=== PATIENT | male | born 1945 | race Caucasian/White ===

== ENCOUNTER 2018-11-18 22:21 | Inpatient (IN) | payer OTHER ==
[~2018-11-18] VITALS: Ht 172.7 cm; Wt 115.3 kg
--- NOTE | ~2018-11-18 | O ---
[facility] [place] [address] OPERATIVE REPORT Name: NESTOR RIVERA Room #: 360-P [facility] IN M.R.#: [id number] Admission: 11/19/18 ������������������ Attend Phys: Rocky Wray Discharge: ������������������ Date of : 41 Report #: [id number] THIS REPORT FOR: //name// CC: OLINDA physician/PCP Rocky Wray DATE OF SERVICE: 11/20/2018 PREOPERATIVE DIAGNOSIS: Left ankle Maisonneuve type injury with syndesmotic ligament disruption. POSTOPERATIVE DIAGNOSIS: Left ankle Maisonneuve type injury with syndesmotic ligament disruption. PROCEDURE: Left ankle percutaneous screw syndesmosis. SURGEON: Todd Kern M.D. MIRROR FINISHING MACHINE OPERATOR: Joann Delgado. ANESTHESIA: Local with MAC. ESTIMATED BLOOD LOSS: Minimal. DRAINS: None. TOURNIQUET TIME: 0. TOURNIQUETS: None. COMPLICATIONS: None. DESCRIPTION OF PROCEDURE: The patient brought to the operating room where he was placed under MAC anesthesia. His left lower extremity was then prepped and draped in a sterile manner. Utilizing fluoroscopy for guidance, a bone reduction tenaculum was then placed across the syndesmosis. Excellent reduction was achieved in this manner. Once this was achieved, two 4.5 mm cannulated screws were placed in a parallel position along the syndesmosis from the fibula to the tibia. Excellent fixation and alignment was achieved as verified under fluoroscopy. The wound was then irrigated copiously and closed with gurwinder for the skin. The wound was dressed with Xeroform, 4 x 4s, and a sterile soft compressive dressing with a short leg cast was placed. There were no [facility] [address] [place] [address] OPERATIVE REPORT Name: NESTOR RIVERA Room #: 360-P [facility] IN ..#: [id number] Admission: 11/19/18 ������������������ Attend Phys: Rocky Wray Discharge: ������������������ Date of : 41 Report #: [id number] complications from the procedure. The patient tolerated the procedure well and went to the recovery room without incident. ��������������������������������������������� ���������������������������������������� By: ��������������������������������������������� 1427 [id number] Todd Kern MD /nt
[2018-11-18 22:22] VITALS: BP 77/40
[2018-11-18 22:56] LABS: ABSOLUTE NEUTROPHILS 4.7 thou/uL (1.4-8.2); BASOPHILS 1.1 % (0.0-2.0); EOSINOPHILS 3.2 % (0.0-3.0); HEMATOCRIT 47.4 % (42.0-52.0); HEMOGLOBIN 15.7 gm/dL (14.0-18.0); LYMPHOCYTES 28.9 % (24.0-44.0); MCH 33.7 pg (26.0-34.0); MCHC 33.2 g/dL (28.0-37.0); MCV 101.6 fL (80.0-100.0); MONOCYTES 9.3 % (1.0-8.0); PLATELET COUNT 236 thou/uL (150-400); POLYS 57.5 % (36.0-66.0); RBC 4.67 mil/uL (4.50-6.00); RDW 16.4 % (10.5-14.5); WBC 8.1 thou/uL (4.0-11.0)
[2018-11-18 23:07] LABS: CALCIUM 9.3 mg/dL (8.5-10.1); CREATININE 1.9 mg/dL (0.7-1.3); POTASSIUM 3.7 mmol/L (3.5-5.1)
[2018-11-18 23:11] LABS: ALBUMIN 3.4 g/dL (3.4-5.0)
[2018-11-18 23:31] LABS: TOTAL BILIRUBIN 0.3 mg/dL (<0.1-1.0); TOTAL PROTEIN 7.6 g/dL (6.4-8.2)
[2018-11-19] VITALS (7 sets, daily range): BP systolic 93–160; BP diastolic 60–86
[2018-11-19 03:18] LABS: MAGNESIUM 2.2 mg/dL (1.8-2.4)
[2018-11-19 04:02] LABS: FOLIC ACID 26.5 ng/mL (8.6-58.9)
[2018-11-19 04:59] LABS: AMP/METHAMP Negative (Negative); BARBITURATES Negative (Negative); BENZODIAZEPINES Negative (Negative); COCAINE Negative (Negative); METHADONE Negative (Negative); OPIATES Negative (Negative); PCP Negative (Negative)
[2018-11-19 05:09] LABS: URINE BILIRUBIN NEGATIVE (Negative); URINE BLOOD 1+ (Negative); URINE CLARITY CLEAR; URINE COLOR YELLOW; URINE GLUCOSE-RANDOM* 3+ (Negative); URINE KETONES NEGATIVE (Negative); URINE LEUKOCYTES-REFLEX NEGATIVE (Negative); URINE NITRITE-REFLEX NEGATIVE (Negative); URINE PROTEIN (DIPSTICK) NEGATIVE (Negative); URINE SPECIFIC GRAVITY <= 1.005 (1.005-1.035); URINE UROBILINOGEN 0.2 E.U./dl (0.2-1.0)
--- NOTE | 2018-11-19 05:16 | NUR ---
Pt arrived from ER at about 0200 11/19/18. A/O x 4 with some forgetfulness. RA. Unsteady on feet, up with assist x 2. C/o intermittent left ankle pain with some pain relief from rest. CWIA score 1 consistently. VSS. V-paced rhythm. Pt stated he did take some home meds but couldn't remember the names of those meds nor prefered pharmacy. Unable to complete med reconciliation or prefered pharmacy info. Urine sample sent to lab. Bed alarm on. Fall precautions initiated and maintained. Pt instructed to call for assistance. Call light within reach. Will continue to monitor.
[2018-11-19 05:21] LABS: CASTS None Seen /LPF (None Seen); MUCUS None Seen strn/LPF (None Seen); SQUAMOUS None Seen /LPF (0-3); URINE RBC 0-2 Rare /HPF (0-2); URINE WBC-REFLEX 0-5 Rare /HPF (0-5)
[2018-11-19 05:22] LABS: BACTERIA-REFLEX None Seen /HPF (None Seen); CRYSTALS None Seen /LPF (None Seen)
[2018-11-19 06:50] LABS: HEMATOCRIT 45.2 % (42.0-52.0); HEMOGLOBIN 14.6 gm/dL (14.0-18.0); MCH 33.4 pg (26.0-34.0); MCHC 32.3 g/dL (28.0-37.0); MCV 103.5 fL (80.0-100.0); RBC 4.37 mil/uL (4.50-6.00); RDW 16.3 % (10.5-14.5); WBC 8.2 thou/uL (4.0-11.0)
--- NOTE | 2018-11-19 06:57 | NUR ---
At about 0630 this AM shortly upon awakening, Pt c/o left ankle pain level 5-7/10 upon movement in particular. Pain med given per order. Increased swelling noted at left ankle. Pt instructed not to get up and call for assistance. Will follow up with incoming day-shift RN. Fall precautions maintained. Call light within reach.
[2018-11-19 07:01] LABS: CALCIUM 8.3 mg/dL (8.5-10.1); CREATININE 1.6 mg/dL (0.7-1.3); POTASSIUM 3.7 mmol/L (3.5-5.1)
--- NOTE | 2018-11-19 10:36 | NUR ---
BLOOD SUGAR 32 THIS MORNING. ONE AMP OF D50 GIVEN. BLOOD SUGAR RECHECKED AND IS NOW 97.
--- NOTE | 2018-11-19 22:08 | EKG ---
[address] [address] ELECTROCARDIOGRAM REPORT Name: NESTOR RIVERA Room #: 360- ADM IN M.R.#: [id number] ������������������ Admission: 11/19/18 ������������������ Attend Phys: Moisés Grey MD Discharge: ������������������ Date of : 41 Report #: [id number] ����������������������������������������������������������������� [id number] THIS REPORT FOR: //name// [facility] ED Test Date: 2018-11-18 Test Time: 22:55:06 Pat Name: NESTOR RIVERA Department: Room: [facility] Gender: M Fusion Analyst: PRINCE : 1945 Requested By: Kody Bazzi Order Number: [id number] MD: Arya Epperson Measurements Intervals [place] Rate: 68 P: -44 [place]: 152 QRS: -77 QRSD: 200 T: 113 QT: 522 QTc: 556 Interpretive Statements Ventricular-paced complexes No further analysis attempted due to paced rhythm Baseline wander in lead(s) V5 No previous ECG available for comparison Electronically Signed On 11-19-2018 22:08:21 REGULATORY AFFAIRS SPECIALIST by Arya Epperson [email or web address] ��������������������������������������������� <ELECTRONICALLY SIGNED> ���������������������������������������� By: Arya Epperson MD ��������������������������������������������� 11/19/18 2208 [id number] Arya Epperson MD /EPI
[2018-11-20] VITALS (7 sets, daily range): BP systolic 136–197; BP diastolic 68–120
--- NOTE | 2018-11-20 05:52 | NUR ---
PT ADMITTED FROM ER VIA EMS. FOLLOWING POC WITH IVF AND IVPB ANTIBIOTICS. ALL THREE Q4 CIWA'S WERE SCORED 3'S. PT HAS BEEN NPO SINCE 2400 FOR SCHEDULED SURGERY TODAY. PT'S LEFT FOOT HAS BEEN ELEVATED ALL SHIFT WITH A PILLOW. PT'S CONCERN WAS FOR PAIN CONTROL AND WHAT TIME HIS SURGERY IS SCHEDULED FOR. VSS, AND HOURLY ROUNDING. PT USES CALL LIGHT ACCORDINGLY AND USES URINAL FOR MICTRATION.
[2018-11-20] MEDS ORDERED: VITAMIN D5000 UNIT PO (09:27)
[2018-11-20] MEDS ORDERED: NITROSTAT0.4 MG SUBLING (09:28)
[2018-11-20] MEDS ORDERED: FOLIC ACID1 MG PO (09:28)
[2018-11-20] MEDS ORDERED: KLOR-CON 1010 MEQ PO (09:28)
[2018-11-20] MEDS ORDERED: ATIVAN1 MG PO (09:28)
[2018-11-20] MEDS ORDERED: VITAMIN B-12500 MCG PO (09:28)
[2018-11-20] MEDS ORDERED: COREG25 MG PO (09:29)
[2018-11-20] MEDS ORDERED: AMARYL2 MG PO (09:29)
[2018-11-20] MEDS ORDERED: LASIX 40 MG TAB40 M2 PO (09:29)
[2018-11-20] MEDS ORDERED: LIPITOR80 MG PO (09:29)
[2018-11-20] MEDS ORDERED: LISINOPRIL5 MG PO (09:29)
[2018-11-20] MEDS ORDERED: EFFEXOR XR75 MG PO (09:30)
[2018-11-20] MEDS ORDERED: IMDUR 30 MG TAB30 M1 PO (09:30)
[2018-11-20] MEDS ORDERED: MYSOLINE50 MG PO (09:30)
[2018-11-20] MEDS ORDERED: PLAVIX 75 MG TA75 MG PO (09:31)
[2018-11-20] MEDS ORDERED: JARDIANCE10 MG PO (09:31)
[2018-11-20] MEDS ORDERED: XARELTO10 MG PO (09:31)
[2018-11-20] MEDS ORDERED: TRIAMCINOLONE A80 G2 TOP (09:32)
--- NOTE | 2018-11-20 14:17 | NUR ---
ASSESSMENT-PT LIVES AT HOME WITH HIS CAT CLIFTON. HE HAS A SON, DTR AND EX- IN THE AREA. PT SAYS HE SLEEPS IN A RECLINER. PRIOR TO ADMISSION PT WAS WALKING ON HIS OWN AND DOING HIS OWN ADLS. HE SAYS HE DOES ALL OF HIS OWN COOKING, CLEANING AND LAUNDRY. PT HAS GRAB BARS AND A SHOWER CHAIR IN THE BATHROOM. PT HAS NOT HAD ANY HH SERVICES. PT GOING TO SURGERY TODAY AND UNDERSTANDS HE WILL NEED TO GO TO REHAB AFTER SURGERY. PT IS CONCERNED ABOUT HIS CAT AND WANTS TO GO SOMEWHERE WHERE HE CAN TAKE THE CAT. ALERTED HIM THAT WE WOULD NEED TO CHECK OPTIONS WITHIN HIS INS NETWORK. PT VOICED UNDERSTANDING. FOLLOWING TO ASSIST WITH REHAB PLACEMENT ONCE MEDICALLY STABLE.
--- NOTE | 2018-11-20 17:07 | NUR ---
ASSUMED CARE AT SHIFT CHANGE. PT A/O X 4, ANXIOUS/AGGITATED THIS AM, CIWA OF 12. GIVEN PRN IV ATIVAN FOR WITHDRAW SYMPTOMS, IMPROVED. PT RESTING CALMLY THIS AFTERNOON, NAD NOTED. HAD SURGERY AT [address] ANKLE WITH DR DALTON. PSYCH CONSULT SAW PT TODAY WELL. ASSESSMENTS PER CHART, LABS NOTED. HOME MEDS RECONCILED PER PT PCP. PT RESTING CALMLY WITH NAD NOTED AT THIS TIME. WILL CONT TO MONITOR AND INTERVENE PRN.
--- NOTE | 2018-11-20 19:25 | NUR ---
PT HAD EPISODE OF PROJECTION PRINTER ALARMING V-TACH. PT A/O, DENIES SOB, CP. SENIOR NUCLEAR MEDICINE TECHNOLOGIST STATES PT HAS HAD INTERMITTENT EPISODES OF "RUN PVC'S/VTACH" FOR APPROX 30-45MIN. DR BUSTAMANTE NOTIFIED AT 1850. ORDERS RECEIVED FOR EKG AND IV LOPRESSOR. PT RESTING CALMLY IN BED WITH TREMORS NOTED, CIWA SOCRE OF 4. REPORT GIVEN TO HOAWRD ABBOTT.
--- NOTE | 2018-11-21 04:19 | NUR ---
PATIENT IS SLOWLY PROGRESSING IN HIS CARE PLAN. VITAL SIGNS STABLE WITH PATIENT HAVING MINIMAL COMPLAINTS OF LEG PAIN AND NO COMPLAINTS OF NAUSEA. PATIENT ORIENTED AND ABLE TO CALL APPROPRIATELY FOR NEEDS. CIWA PER PROTOCOL WITH PATIENT SCORING FOR TREMORS AND ANXIETY. PATIENT HAS STATED INCREASED ANXIETY DURING SHIFT, WITH COMPLAINTS OF BEING "CLAUSTROPHOBIC." POST PROCEDURE CARE WITH PATIENT UNABLE TO BEAR WEIGHT ON LEFT LOWER EXTREMITY. SENSATION INTACT WITH PATIENT ABLE TO WIGGLE TOES. PATIENT IS ANXIOUS FOR DISCHARGE TO REHAB SOON. CONTINUE PLAN OF CARE.
[2018-11-21 04:26] VITALS: BP 170/88
[2018-11-21 06:04] LABS: HEMATOCRIT 41.7 % (42.0-52.0); HEMOGLOBIN 13.4 gm/dL (14.0-18.0)
[2018-11-21 06:19] LABS: POTASSIUM 4.7 mmol/L (3.5-5.1)
[2018-11-21 07:15] VITALS: BP 185/84
--- NOTE | 2018-11-21 08:00 | NUR ---
A&0X2-3, VISIBLE TREMORS, STATES NOT AGITATED YET ANSWERING LOC QUESTIONS GRUMPILY. EXPLAINING EVERYTHING WE ARE DOING, WBAT, TWO URINALS, BARRIER CREAM USED. DOESN'T REMEMBER LAST BM. GAVE DEMO FAMILY PROGRAM SPECIALIST LIGHT TO ENSURE HIS KNOWLEDGE, TURNING Q2H, ENCOURAGED HIM TO USE CALL LIGHT FOR ANY NEEDS
--- NOTE | 2018-11-21 09:07 | EKG ---
[address] [place] [address] ELECTROCARDIOGRAM REPORT Name: NESTOR RIVERA Room #: 360-P ADM IN M.R.#: [id number] ������������������ Admission: 11/19/18 ������������������ Attend Phys: Rocky Wray Discharge: ������������������ Date of : 41 Report #: [id number] ����������������������������������������������������������������� [id number] THIS REPORT FOR: //name// [facility] Test Date: 2018-11-20 Test Time: 19:25:09 Pat Name: NESTOR RIVERA Department: Room: 360 P Gender: M Inspector Tool: Sujata BARNETT : 1945 Requested By: Rocky Wray Order Number: [id number] MD: Favian Lozano Measurements Intervals [place] Rate: 96 P: -7 [place]: 150 QRS: -79 QRSD: 184 T: 108 QT: 418 QTc: 529 Interpretive Statements Ventricular pacing Compared to ECG 11/18/2018 22:55:06 no significant change was found Electronically Signed On 11-21-2018 9:07:11 HOME CARE LIAISON by Favian Lozano [email or web address] ��������������������������������������������� <ELECTRONICALLY SIGNED> ���������������������������������������� By: Favian Lozano MD, [facility] ��������������������������������������������� 11/21/18906 24 24 Favian Lozano MD, FAC /EPI
--- NOTE | 2018-11-21 10:48 | NUR ---
on-going assessment: CM REVIEWED CHART AND MET WITH PATIENT AT THE BEDSIDE. CM DISCUSSED ATTEMPTING TO FIND A SNF THAT IS IN-NETWORK AND WHERE HIS CAT COULD POSSIBLY GO WITH HIM. PATIENT STATES HE HAS NO PREFERENCE OF SNF. CM TOUCHED BASE WITH LIABETI AT [facility] WHO STATES SHE WILL TALK WITH STAFF TO SEE IF THEY CAN ACCOMIDATE THIS AND LET CM KNOW. CM FAXED REFERRAL TO [facility]. CM WILL CONTINUE TO FOLLOW TO ASSIST NEEDED.
--- NOTE | 2018-11-21 11:34 | NUR ---
This RN has reviewed and agrees with the assessments and documentation by nursing executive Carmen Estrada.
[2018-11-21 12:18] VITALS: BP 136/67
--- NOTE | 2018-11-21 15:13 | NUR ---
PT MUCH MORE TALKATIVE AND JOKING, LESS TREMORS, ASKED FOR THE MEDICATION TO KEEP TREMORS AT BAY. WILL ASSESS
--- NOTE | 2018-11-21 15:21 | NUR ---
PT HAS SLIGHT RED SPOT ABOVE HIS LEFT EYEBROW, GAVE HIM CREAM, FOR THE DRYNESS AND IRRITATION. HE THOUGHT IT WAS D/T MASK FROM RT TX THEY'D JUST EXITED ROOM
[2018-11-21 16:25] VITALS: BP 150/80
[2018-11-21 20:00] VITALS: BP 114/54
[2018-11-22 04:30] VITALS: BP 166/77
--- NOTE | 2018-11-22 07:30 | NUR ---
PATIENT IS PROGRESSING IN HIS CARE PLAN. VITAL SIGNS STABLE WITH PATIENT HAVING NO COMPLAINTS OF PAIN OR NAUSEA. PATIENT FULLY ORIENTED WITH MUCH LESS ANXIETY NOTED. CIWA PER PROTOCOL WITH PATIENT SCORING AROUND THREE TOWARDS END OF SHIFT. PATIENT ABLE TO CALL APPROPRIATELY FOR NEEDS. UP TO CHAIR, PATIENT IS A STAND AND PIVOT WITH REINFORCEMENT FAR NON WEIGHT BEARING STATUS ON LEFT LEG. PATIENT ENCOURAGED TO COUGH AND DEEP BREATHE AND USE OF INCENTIVE SPIROMETER. POSSIBLE DISCHARGE TO REHAB SOON. CONTINUE PLAN OF CARE.
[2018-11-22 08:38] VITALS: BP 180/91
[2018-11-22] MEDS ORDERED: AUGMENTIN 875-1 EACH PO (09:57)
[2018-11-22] MEDS ORDERED: HYDROCODON-ACE1 EAC7 PO (09:58)
[2018-11-22] MEDS ORDERED: LIBRAX CAPSULE1 EACH PO (09:59)
--- NOTE | 2018-11-22 10:09 | NUR ---
ON-GOING ASSESSMENT: JACKIE SPOKE WITH RALPH YOUNG FROM [facility] THIS AM WHO STATES THEY CAN CLINICALLY ACCEPT THE PATIENT AND WILL SEEK INSURANCE AUTH FOR SNF. CM [facility] WHO IS SEEKING AUTH FOR SNF FOR POSSIBLE ADMISSION TODAY.
--- NOTE | 2018-11-22 11:50 | NUR ---
PT. DISCHARGING TODAY TO [facility] SKILLED. FAXED DC ORDERS/SUMMARY TO FACILITY AND SPOKE WITH KATY IN ADM. SHE RECEIVED DC ORDERS AND SET UP TRANSPORTATION VIA [facility] FOR 1300 TODAY. PT. WILL NOTIFY FAMILY OF DISCHARGE AND TIME. UNIT NOTIFIED AND CHART COPY PER US. RN TO CALL REPORT TO [phone].
--- NOTE | 2018-11-22 11:57 | NUR ---
on-going assessment: CM REVIEWED CHART AND SPOKE WITH LIASON FROM [facility]. THEY HAVE RECEIVED INSURANCE AUTH TO ACCEPT PATIENT TO [facility] TODAY. TRANSPORTATION HAS BEEN ARRANGED FOR 1PM. CM NOTIFIED PATIENT WELL BEDSIDE RN. CM SPOKE WITH OBSTETRICS GYN AND ORDERED CHART COPY. BEDSIDE RN WAS GIVEN THE NUMBER FOR REPORT. IT APPLICATIONS ANALYST IS FAXING ORDERS. PT REPORTS NO FURTHER NEEDS FROM JACKIE AT THIS TIME.
[2018-11-22 12:04] VITALS: BP 146/63
--- NOTE | 2018-11-22 13:24 | NUR ---
Assumed care of Pt at 0700. Pt alert and oriented in no acute distress. breathing comfortably on room air. showing no signs of withdrawal except tremoring. non weight bearing status on left lower ext. d/c to [place] at 1300. pt progressing toward poc goals.
== END 2018-11-22 13:28 | DRG 177 ==
LOC: ER 22:21 → EROBS 11-19 00:43 → 3W 11-19 00:43
PROVIDERS: Emergency Medicine; Nurse Practitioner Family; Orthopaedic Surgery Foot and Ankle Surgery; ADMIT Hospitalist
PROC: 0SSG34Z Reposition Left Ankle Joint with Internal Fixation Device, Percutaneous Approach (ICD-10-PCS; principal; 2018-11-20)
DX: J69.0 Pneumonitis due to inhalation of food and vomit (principal); N17.0 Acute kidney failure with tubular necrosis; F10.239 Alcohol dependence with withdrawal, unspecified; S82.452A Displaced comminuted fracture of shaft of left fibula, initial encounter for closed fracture; Y90.9 Presence of alcohol in blood, level not specified; S93.402A Sprain of unspecified ligament of left ankle, initial encounter; I48.91 Unspecified atrial fibrillation; R09.02 Hypoxemia; I25.10 Atherosclerotic heart disease of native coronary artery without angina pectoris; K59.00 Constipation, unspecified; X58.XXXA Exposure to other specified factors, initial encounter; E78.5 Hyperlipidemia, unspecified; I10 Essential (primary) hypertension; E11.9 Type 2 diabetes mellitus without complications; Z79.899 Other long term (current) drug therapy; Y93.89 Activity, other specified; Y92.89 Other specified places as the place of occurrence of the external cause; Z95.0 Presence of cardiac pacemaker; Z95.5 Presence of coronary angioplasty implant and graft; Y99.8 Other external cause status
CPT/HCPCS: 10879; 50010; 50101; 50386; 50679; 51412; 56524; 56525; 57091; 57180; 62110; 62850; 64042; 70005